=== PATIENT | male | born 1970 ===

== ENCOUNTER 2024-12-17 08:14 | Day surgery (SDC) | payer BC ==
[~2024-12-17 08:14] MED LIST: propofoL 500 MG/50 ML 50 ML ONE
[2024-12-17] MEDS: Lactated Ringers 1,000 ML IV SCH (08:45)
[2024-12-17] MEDS ORDERED: Magnesium Sulfate (4.06 MEQ/ML) 5 GM/10 ML SDV ONE (09:47)
[2024-12-17] MEDS ORDERED: Glucagon,Human Recombinant 1 MG Vial ONE (10:00)
== END 2024-12-17 11:10 | disposition home or self-care (01) ==
LOC: MW.SDS 08:14
PROVIDERS: ATTEND Surgery
DX: Z12.11 Encounter for screening for malignant neoplasm of colon (principal); D12.6 Benign neoplasm of colon, unspecified; D12.3 Benign neoplasm of transverse colon; K57.30 Diverticulosis of large intestine without perforation or abscess without bleeding; I10 Essential (primary) hypertension; E66.9 Obesity, unspecified; Z68.32 Body mass index [BMI] 32.0-32.9, adult; Z79.899 Other long term (current) drug therapy
CPT/HCPCS: 45380; 45385; J1610; J2704; J3475; J7120; 00811